=== PATIENT | male | born 1980 | race Caucasian/White ===

== ENCOUNTER 2023-11-27 16:13 | Emergency (ER) | payer OTHER, SELFPAY ==
[2023-11-27] VITALS (30 sets, daily range): BP systolic 61–122; BP diastolic 40–81; BMI 24.6
--- NOTE | 2023-11-27 16:48 | ED.GENMED ---
History of Present Illness
General
Chief Complaint: Extremity Pain (non-traumatic)
Source: patient and spouse
Exam Limitations: none
Time Seen by Provider: 11/27/23 16:43
Nursing documentation reviewed up to this point in time: agreed with
History of Present Illness
History of Present Illness:
Patient is a 43-year-old [id number] male who fell approximately 6 feet off a ladder onto his right arm. Patient went to urgent care and was found to have a broken arm and was sent to the emergency department. Patient denies any numbness
or paresthesias. Patient is allergic to bees and is out of EpiPen's. Patient was not stung. Patient denies any head, neck, back, chest or abdominal injuries.
Past History
Past History
ED Past Medical History: Seizures
ED Past Surgical History: None
Review of Systems
Review of Systems
All Other Systems: Not applicable
Phy Exam
Physical Exam
Physical Exam:
Physical Exam
General: moderate distress, alert and appropriate, well nourished, well hydrated
HENT: Normocephalic and atraumatic, supple
Eyes: Clear sclera, conjuctiva without injection
Heart: Regular rhythm and rate. No S3, S4. No murmur. No NVD
Lungs: No respiratory distress, no stridor, lung sounds clear and equal bilaterally, chest wall symmetrical and nontender
Abdomen: Soft, nontender BS good
Neuro: Alert and oriented x 3, CN II - XII intact, no motor focality, no cerebellar dysfunction
Skin: Superficial abrasions on the volar aspect of the right wrist isolated from the fracture site
Psychiatric: well kept. interactive and cooperative
Extremities: No edema, cyanosis. Right forearm midshaft tender with swelling and deformity. Neurovascular and tendons intact.
Musculoskeletal: No cervical, thoracic or lumbar spine tenderness
Course
Orders/Labs/Results
Orders:
Orders
11/27/23 16:22
CR Forearm - Right 2 View Urgent
Comment:
Reason For Exam: injury
11/27/23 16:48
Propofol [Diprivan] 20 ml .ROUTE .STK-MED
11/27/23 17:50
Forearm, Right 2 View [CR Forearm - Right 2 View] Urgent
Comment: portable
Reason For Exam: post reduction
Vital Signs
Initial and Last Documented VS:
Initial Vital Signs
Temp Pulse Resp BP Pulse Ox
98.3 F 71 18 122/81 99
11/27/23 16:16 11/27/23 16:16 11/27/23 16:16 11/27/23 16:16 11/27/23 16:16
Last Documented Vital Signs
Temp Pulse Resp BP Pulse Ox
98.1 F 59 12 113/70 100
11/27/23 19:06 11/27/23 19:06 11/27/23 19:06 11/27/23 19:00 11/27/23 19:06
Procedures
Moderate Sedation
ASA Risk Score: Class II
Chart and allergies reviewed: Yes
Consent for anesthesia obtained: Yes
Time out completed (validating right patient & procedure): Yes
Moderate Sedation Start Time(when first medication is given): 17:38
History of difficult intubation: No
Airway free of obstruction: Yes
Patient has a gag reflex: Yes
Patient is able to open mouth: Yes
Patient has no dentures: Yes
Patient has no loose teeth: Yes
Medication administered by Provider during Moderate Sedation: IV Propofol (mg)
Total dose administered: 200
Time drug administered: 17:38
Moderate Sedation Procedure End Time: 18:04
Joint/Fracture Reduction
Right Middle Arm:
Indication for procedure:: fracture
Procedure completed by: lazaro
Consent form signed: Yes
Joint reduced: with anesthesia sedation
Anesthesia/sedation: Moderate sedation
Injury was: closed
Further treatement: needs further treatment
Post reduction exam: unstable
Capillary Refill: normal
Normal distal neurovascular exam?: Yes
Additional information:
Unable to keep the fracture reduced. Spoke with orthopedics and will follow-up.
*Radiology
Radiology exam reviewed: radiology read reviewed (Fracture of the midshaft radius with displacement and subsequent films show no significant improvement)
*Pulse Oximetry
Patient hypoxic: no
*EKG
Interpreted by ED Provider?: NA
*Pump Operator Interpretation
Rate: normal
Interpretation: normal
Heart Rate: 60
Rhythm: sinus
*Critical Care Note
Total Time (30-74mins, 75-104mins- exclusive of procedures): Not Applicable
ED Attending Note
-
Portions of this chart may have been created with voice recognition software.� Occasional wrong word or��sound alike� substitutions may have occurred due to the inherent limitations of voice recognition software.
Discharge Plan
Departure
Patient Disposition: Home (Routine Discharge)
Date of Disposition: 11/27/23
Time of Disposition: 19:23
Patient with high blood pressure during this ER visit?: No
Covid-19: Not Applicable
Discharge Problem:
Fracture of right radius
Instructions: How to care for a splint, Forearm fracture, MODERATE SEDATION ADULT, RICE Therapy
Prescriptions:
No Action
levetiracetam 500 MG tablet
750 mg PO BID
ibuprofen 400 MG tablet
400 mg PO BIDPRN PRN (Reason: pain, fever)
amoxicillin-pot clavulanate 1 TABLET tablet
1 tab PO Q12 Qty: 5 0RF
Referrals:
Ferny Ballesteros MD [Family Provider] -
Parker Rincon MD [Active] - Call in 1-3 days for appt
Activity Restrictions/Additional Instructions:
Plenty of ice. Acetaminophen 1000 mg every 6 hours for pain.
Interventions
Interventions:
*Risk Screen - Suicide Last Done: 11/27/23 16:16
*General Assessment Last Done: 11/27/23 16:16
*Neglect/Abuse Screening Last Done: 11/27/23 16:16
ED- Fall Risk Assessment Last Done: 11/27/23 16:40
*ED COVID-19 Vaccine History Last Done: 11/27/23 16:35
ED-Skin Assessment Last Done: 11/27/23 16:35
ED-Peripheral Vascular Assessment Last Done: 11/27/23 16:40
ED-Musculoskeletal Assessment Last Done: 11/27/23 16:35
Discharge Date and Time
Print Language: PARAGUAYAN
== END 2023-11-27 19:30 | disposition home or self-care (01) ==
LOC: EMR 16:13
PROVIDERS: EMERGENCY PHYSICIAN Emergency Medicine; FAMILY PHYSICIAN Family Medicine
DX: S52.391A Other fracture of shaft of radius, right arm, initial encounter for closed fracture (principal); W11.XXXA Fall on and from ladder, initial encounter
CPT/HCPCS: 99283; 25505; 99152; 73090

== ENCOUNTER 2025-01-07 14:29 | Emergency (ER) | payer OTHER, SELFPAY ==
[2025-01-07 14:35] VITALS: BP 157/126
--- NOTE | 2025-01-07 15:37 | ED.GENMED ---
History of Present Illness
General
Chief Complaint: Cold/Flu/URI Symptoms
Source: patient
Exam Limitations: none
Time Seen by Provider: 01/07/25 14:52
Nursing documentation reviewed up to this point in time: agreed with
History of Present Illness
History of Present Illness:
Patient is a 44-year-old male with history of opiate abuse presents to the ER for evaluation. Patient is requesting promethazine stating that he has severe allergies and is prescribed this in the past by his family doctor. He has not been able to
get hold of his family doctor. He complains of runny nose burning to his eyes and trouble sleeping because of this .he complains of but denies shortness of breath
Past History
Past History
ED Past Medical History: Seizures
ED Past Surgical History: None
Phy Exam
General Physical Exam
General Presentation: no apparent distress
General age: appears stated age
General Skin: warm and dry
General Habitus: normal
General Mental: alert
Cardiovascular Exam
Cardiovascular Exam: regular rate/rhythm, no murmur and normal peripheral pulses
Pulmonary Exam
Pulmonary Exam: lungs clear and no respiratory distress
Neurological Exam
Neurological Exam: alert and oriented x3
Musculoskeletal Exam
Musculoskeletal Exam: full ROM
Skin Exam
Skin Exam: normal color and warm/dry
Psychiatric Exam
Psychiatric Exam: normal mood/affect
Course
Orders/Labs/Results
Orders:
Orders
01/07/25 15:37
Vital Signs- Treatment ONCE
Frequency: Once
Vital Signs
Initial and Last Documented VS:
Initial Vital Signs
Temp Pulse Resp BP Pulse Ox
97.8 F 72 18 157/126 96
01/07/25 14:35 01/07/25 14:35 01/07/25 14:35 01/07/25 14:35 01/07/25 14:35
Last Documented Vital Signs
Temp Pulse Resp BP Pulse Ox
97.8 F 66 16 141/77 98
01/07/25 14:35 01/07/25 15:52 01/07/25 15:52 01/07/25 15:52 01/07/25 15:52
MDM/Problems Addressed
Differential Diagnosis Includes:
Not limited to allergies, URI.
MDM/Problems Addressed:
Patient is a 44-year-old male on Suboxone requesting a prescription for promethazine for allergies. He is in no acute distress and afebrile lungs are clear. he is a smoker. He denies any shortness of breath + mild cough. I suggested that he
take loratadine I can try to write a prescription for this /he may also purchase [id number].
I suggest that he follow-up with his family doctor as he normally has had this prescribed by his family doctor for this in the past. He does have a history of right arm fracture and also requested an orthopedic in the area.
Chronic conditions affecting care:
History of opiate abuse on Suboxone
*Pulse Oximetry
SaO2: 96
Oxygen Mode of Delivery: Room air
Patient hypoxic: no
*Critical Care Note
Total Time (30-74mins, 75-104mins- exclusive of procedures): Not Applicable
ED Attending Note
-
Portions of this chart may have been created with voice recognition software.� Occasional wrong word or��sound alike� substitutions may have occurred due to the inherent limitations of voice recognition software.
Discharge Plan
Departure
Patient Disposition: Home (Routine Discharge)
Date of Disposition: 01/07/25
Time of Disposition: 15:47
Patient with high blood pressure during this ER visit?: Yes
Condition: Fair
Covid-19: Not Applicable
Discharge Problem:
Allergies
Instructions: Seasonal allergies - ED (DC), BLOOD PRESSURE
Prescriptions:
New
loratadine 10 mg tablet
10 mg PO DAILY Qty: 30 0RF
No Action
levetiracetam 500 MG tablet
750 mg PO BID
ibuprofen 400 MG tablet
400 mg PO BIDPRN PRN (Reason: pain, fever)
amoxicillin-pot clavulanate 1 TABLET tablet
1 tab PO Q12 Qty: 5 0RF
Referrals:
Jose Nelson MD [Active, Orthopedics]
Activity Restrictions/Additional Instructions:
As discussed I did send a prescription for loratadine to your pharmacy. You may also purchase this [id number]. Please follow-up with your family doctor as discussed. In addition you requested orthopedics, please see number listed.
Interventions
Interventions:
*Risk Screen - Suicide Last Done: 01/07/25 14:35
*General Assessment Last Done: 01/07/25 14:35
*Neglect/Abuse Screening Last Done: 01/07/25 14:35
*ED- Fall Risk Assessment Last Done: 01/07/25 16:07
*ED COVID-19 Vaccine History Last Done: 01/07/25 14:35
*ED Influenza Vaccine History Last Done: 01/07/25 14:35
*Nursing Disposition Last Done: 01/07/25 16:07
ED- Pulmonary Assessment Last Done: 01/07/25 16:06
Discharge Date and Time
Discharge Date/Time: 01/07/25 16:13
Print Language: TELUGU
[2025-01-07 15:52] VITALS: BP 141/77
== END 2025-01-07 16:13 | disposition home or self-care (01) ==
LOC: EMR 14:29
PROVIDERS: EMERGENCY PHYSICIAN Student in an Organized Health Care Education/Training Program
DX: J30.2 Other seasonal allergic rhinitis (principal); R03.0 Elevated blood-pressure reading, without diagnosis of hypertension; F11.10 Opioid abuse, uncomplicated; F17.200 Nicotine dependence, unspecified, uncomplicated
CPT/HCPCS: 99282